=== PATIENT | female | born 1990 | race Hispanic/Latino ===

== ENCOUNTER 2022-11-09 17:13 | Emergency (ER) | payer MEDICAID, SELFPAY ==
--- NOTE | ~2022-11-09 | US_ITS ---
US OB <= 14 weeks fetus DATE: 11/09/2022 21:34 INDICATION: Nausea and vomiting. Rule out ectopic gestation. Beta hCG of 119,000 TECHNIQUE: Real-time imaging via transabdominal approach COMPARISON: None FINDINGS: The uterus measures approximately 8.8 cm height, 5.7 cm AP dimension. There is an intrauter ine gestational sac with pole and yolk sac identified. Uterine cervix measures approximately 3.2 cm. 2 cm left ovarian corpus luteum cyst. The left ovary measures approximately 3.3 x 2 x 3.1 cm. The rig ht ovary is not visualized. [place] lump length of 2.3 cm is consistent with 9 weeks +/- 6 days estimated gestational age, with JOAO of June 14, 2023 compared to June 19, 2023 by LMP. heart rate of 175 bpm. IMPRESSION: Live sauer intrauterine gestation, estimated gestational age of 9 weeks +/- 6 days; E Reviewed, dictated and finalized at [facility]. Reviewed, dictated and finalized at [facility]. IMPRESSION: Live sauer intrauterine gestation, estimated gestational age of 9 weeks +/- 6 days; JOAO: 06/14/2019
[2022-11-09 17:19] VITALS: BP 104/64; PULSE 94; RESP 17; TEMP 36.6; O2SAT 99
--- NOTE | 2022-11-09 19:46 | ED.GENADULT ---
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 Jim #[id number] Australian-speaking female @ approx 6 wks gestation presenting w/ nausea/vomiting. patient states that she has had persistent nausea vomiting for last 2 days. She has not been able to keep down water. She has had some intermittent sharp stabbing LLQ abdominal pain. She has not taken anything for her symptoms. She does not note any vaginal discharge bleeding or urinary symptoms. She does not have an OBGYN yet. Related Data Allergies Allergy/AdvReac Type Severity Reaction Status Date / Time No Known Allergies Allergy Unverified 11/13/10 17:11 Exam Narrative: APPEARANCE: No apparent distress. Head: atraumatic. EYES: EOMI, NOSE: Atraumatic NECK: Trachea midline RESPIRATORY: No increased rate of breathing , clear to auscultation. CARDIOVASCULAR: RRR, ABDOMINAL: Abdomen is soft nontender no guarding or rebound, no CVA tenderness MUSCULOSKELETAl: No obvious deformities NEURO: Alert. Moving 4/4 extremities SKIN:: Warm, dry. Normal color PSYCHIATRIC: Normal affect Course Vital Signs Vital signs: Vital Signs Temperature 97.9 F 11/09/22 17:19 Pulse Rate 94 11/09/22 17:19 Respiratory Rate 17 11/09/22 17:19 Blood Pressure 104/64 11/09/22 17:19 Pulse Oximetry 99 11/09/22 17:19 Oxygen Delivery Room Air 11/09/22 17:19 Temperature 97.9 F 11/09/22 17:19 Pulse Rate 94 11/09/22 17:19 Respiratory Rate 17 11/09/22 17:19 Blood Pressure 104/64 11/09/22 17:19 Pulse Oximetry 99 11/09/22 17:19 Oxygen Delivery Room Air 11/09/22 17:19 Medical Decision Making [facility] Narrative Medical decision making narrative: -Presentation: 32-year-old female presenting at 6 weeks gestation with nausea and vomiting she also had some left lower quadrant abdominal pain. Rule out ectopic and hyperemesis gravidarum workup has been ordered. 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 Metabolic panel within normal limits. HCG [id number] Urine had 11-20 white blood cells, 16 rbc's and +3 ketones. ultrasound showed a live intrauterine fetus. -Discussion of Management/Consultants: -Dx tests considered but not ordered: None -Procedures: -Interventions: 2 L D5 LR, 25 mg vitamin B6, 12.5 mg Phenergan -Shared decision making / Disposition: Patient's workup significant for hyperemesis gravidarum. She was fluid resuscitated and given antiemetics. Upon re-evaluation she was feeling better and was able tolerate p.o.. Transvaginal ultrasound confirmed intrauterine . Patient is given follow-up with Dr. Ventura and return precautions. -RX Vitamin B6, doxylamine, Keflex Vital Signs Vital Signs: Vital Signs Temperature 97.9 F 11/09/22 17:19 Pulse Rate 94 11/09/22 17:19 Respiratory Rate 17 11/09/22 17:19 Blood Pressure 104/64 11/09/22 17:19 Pulse Oximetry 99 11/09/22 17:19 Oxygen Delivery Room Air 11/09/22 17:19 Temperature 97.9 F 11/09/22 17:19 Pulse Rate 94 11/09/22 17:19 Respiratory Rate 17 11/09/22 17:19 Blood Pressure 104/64 11/09/22 17:19 Pulse Oximetry 99 11/09/22 17:19 Oxygen Delivery Room Air 11/09/22 17:19 Lab Data 11/09/22 19:50 11/09/22 19:50 Labs: Lab Results 11/09/22 11/09/22 11/09/22 Range/Units 19:46 19:50 20:40 WBC 9.4 (4.5-10.0) K/mm3 RBC 4.31 (4.2-5.4) M/mm3 Hgb 13.1 (12.0-15
[2022-11-09 19:50] LABS: Glucose Point of Care 94 mg/dl (65-105)
[2022-11-09] MEDS: PYRIDOXINE HCL 100 MG/ML VIAL (*SPC) 25 MG IV PUSH (19:57)
[2022-11-09] MEDS: PROMETHAZINE HCL 25 MG/ML AMPUL 12.5 MG IV PUSH (19:59)
[2022-11-09] MEDS: DEXTROSE 5%/LACTATED RINGERS 1,000 ML 999 ML IV CONT ×2 (19:59→21:12)
[2022-11-09 20:02] LABS: Basophils Absolute Auto 0.1 K/mm3 (0.0-0.1); Basophils Percent Auto 0.6 % (0.2-1.2); Eosinophils Percent Auto 0.3 % (0-4.4); Hematocrit 38.2 % (37.0-47.0); Hemoglobin 13.1 g/dL (12.0-15.0); Immature Granulocyte Absolute 0.04 K/mm3 (0.00-0.031); Immature Granulocyte Percent A 0.4 % (0-0.5); Lymphocytes Absolute Auto 1.84 K/mm3 (0.9-3.2); Lymphocytes Percent Auto 19.5 % (18.3-44.2); Mean Corpuscular HGB Conc 34.3 g/dl (32-36); Mean Corpuscular Hemoglobin 30.4 pg (26-34); Mean Corpuscular Volume 88.6 fl (80-100); Monocytes Absolute Auto 0.8 K/mm3 (0.1-0.6); Monocytes Percent Auto 8.2 % (2.6-8.5); Neutrophils Absolute Auto 6.7 K/mm3 (1.3-6.7); Platelet Count Result 399 k/mm3 (150-375); Red Blood Count 4.31 M/mm3 (4.2-5.4); Red Cell Distribution Width 12.4 % (11.5-14.5); White Blood Count 9.4 K/mm3 (4.5-10.0)
[2022-11-09 20:12] LABS: Alanine Aminotransferase 25 U/L (6-35); Albumin Level 4.3 g/dL (3.5-5.1); Alkaline Phosphatase 107 U/L (38-126); Anion Gap 8 mmol/L (8-16); Aspartate Amino Transferase 27 U/L (14-36); Bilirubin,Total 0.6 mg/dL (0.2-1.3); Blood Urea Nitrogen 5 mg/dL (7-17); Carbon Dioxide 21 mmol/L (22-30); Chloride 104 mmol/L (98-107); Estimated Glomerular Filt Rate > 60; Glucose 89 mg/dL (65-110); Lipase 96 U/L (23-300); Potassium 3.7 mmol/L (3.4-5.0); Sodium 133 mmol/L (137-145)
[2022-11-09 20:54] LABS: Appearance Urine Cloudy (Clear); Bacteria Urine Rare /hpf; Bilirubin Urine Negative (Negative); Blood Urine Trace (Negative); Color Urine Yellow (Yellow); Glucose Urine UA 3+ mg/dL (Negative); Ketones Urine 3+ mg/dL (Negative); Leukocyte Esterase Ur Negative LEU/UL (Negative); Need Manual Microscopic Reviewed; Nitrate Urine Negative (Negative); Non Pathogenic Casts 0-2; Protein Urine Negative (Negative); Specific Grav Ur 1.024 (1.001-1.035); Squamous Epithelial Cell Urine Moderate /hpf (Few); Urobilinogen Urine 0.2 mg/dL (<2.0)
[2022-11-09 20:59] LABS: Add Urine Microscopic? YES
[2022-11-09 22:52] VITALS: BP 111/68; PULSE 65; RESP 16; O2SAT 100
== END 2022-11-09 23:14 | disposition home or self-care (01) ==
PROVIDERS: Emergency Provider Emergency Medicine
DX: O21.0 Mild hyperemesis gravidarum (principal); O23.41 Unspecified infection of urinary tract in pregnancy, first trimester; N39.0 Urinary tract infection, site not specified; Z3A.01 Less than 8 weeks gestation of pregnancy
CPT/HCPCS: 36415; 76801; 80053; 81001; 81025; 82948; 83690; 83735; 84702; 85025; 86850; 86900; 86901; 87086; 87088; 96361; 96374; 96375; 99284; J2550; J3415; J7121

== ENCOUNTER 2023-07-19 14:47 | Emergency (ER) | payer OTHER, SELFPAY ==
--- NOTE | 2023-07-19 14:57 | ED.CHESTPAIN ---
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 Denies shortness of breath or nausea. Patient is 1 month . Denies following up with her OB, states that she tried calling and there was no appointments today. Pain is not reproducible Onset (ago): day(s) (2-3) Treatment prior to arrival: none Related Data Home Medications Medication Instructions Recorded Confirmed No Home Medications 07/19/23 07/19/23 Allergies Allergy/AdvReac Type Severity Reaction Status Date / Time No Known Allergies Allergy Verified 07/19/23 15:07 Review of Systems Review of Systems: All systems reviewed & are unremarkable except as noted in HPI and below Constitutional: Constitutional: Reports no additional constitutional complaints Eyes: Eyes: Reports no additional eye complaints ENT: Reports system reviewed and no additional complaints, except as documented Cardiovascular: Cardiovascular: Reports as per HPI, Reports chest pain (Left-sided) and Denies dyspnea Respiratory: Respiratory: Reports no additional respiratory complaints, Denies chest congestion, Denies cough and Denies dyspnea Gastrointestinal: Gastrointestinal: Reports no additional gastrointestinal complaints, Denies abdominal pain, Denies nausea and Denies vomiting Musculoskeletal: Musculoskeletal: Reports no additional musculoskeletal complaints Integumentary/Breasts: Skin/Breast: Reports system reviewed and no additional complaints, except as docu Neurologic: Reports system reviewed and no additional complaints, except as documented Psychiatric: Psychiatric: Reports no additional psychiatric complaints Allergic/Immunologic: Allergic/Immunologic: Reports no additional allergic/immunologic complaints PMF Past Medical History Medical History (Updated 07/19/23 @ 15:39 by Dalia Lopez APRN) Patient denies medical problems Surgical History Surgical History (Updated 07/19/23 @ 15:34 by Dalia Lopez APRN) No pertinent past surgical history Comments At the time of my signature, I reviewed and agree with the nursing past medical, surgical, social, and family history. There is no relevant family history pertinent to the patient complaint. Exam Const: General: cooperative, healthy appearing, comfortable, no acute distress, well developed, alert and well nourished Nutritional Appearance: well nourished Orientation/consciousness: patient oriented x3 Limitations: no limitations HENMT: Head: normal to inspection Ears: hearing grossly normal bilaterally and external ears normal Face/Nose/Sinus: Normal external nose present, Normal nares present, Normal nasal mucous membranes and turbinates present, normal facial exam and face symmetric Face and sinus: normal facial exam and face symmetric Mouth: Yes moist mucous membranes Eyes: General: appearance normal, both eyes and all related structures Alignment and Position: alignment normal Periorbital: periorbital findings normal Pupils: Equal, round and reactive pupils present EOM: EOMs intact bilaterally Neck: Neck: normal visual inspection, full ROM, no lymphadenopathy and no meningeal signs Chest: Chest palpation & inspection: normal inspection of the chest Resp: Effort & Inspection: normal respiratory effort and able to speak in complete sentences Auscultation: clear to auscultation bilaterally, no crackles, no rales, no rhonchi and no wheezes Cardio: Jugular venous distension: no JVD Palpation: normal PMI Rate: regular rate Rhythm: regular rhythm Other: No edema Back/Spine/Pelvis: Cervic
[2023-07-19 15:03] VITALS: BP 111/68; PULSE 99; RESP 16; TEMP 36.6; O2SAT 99
--- NOTE | 2023-07-19 15:19 | ECG_ITS ---
Measurements Intervals [place] Rate: 94 P: 54 WY: 157 QRS: 63 QRSD: 93 T: 38 QT: 357 QTc: 447 Interpretive Statements SINUS RHYTHM NORMAL ECG NO PREVIOUS ECG AVAILABLE FOR COMPARISON Electronically Signed On 07-19-2023 15:32:24 CDT by Hank Ramos D.O.
== END 2023-07-19 15:33 | disposition short-term general hospital (02) ==
PROVIDERS: Emergency Provider Nurse Practitioner
DX: O90.89 Other complications of the puerperium, not elsewhere classified (principal); R07.9 Chest pain, unspecified; M54.6 Pain in thoracic spine
CPT/HCPCS: 93005; 99213; G0463

== ENCOUNTER 2024-02-14 17:37 | Emergency (ER) | payer OTHER, SELFPAY ==
--- NOTE | 2024-02-14 17:39 | ED.URI ---
HPI - URI/Sore Throat General Chief Complaint: Ear Stated Complaint: Left Eye/Ear Irritation Time Seen by Provider: 02/14/24 17:39 Source: patient and spanish medical interpreter Mode of arrival: ambulatory Limitations: no limitations History of Present Illness HPI Narrative: Mony is a 33-year-old female patient presenting to the clinic today with complaints of left eye and left ear irritation for the past 3 days. No fever or chills. Reports that the left eyelid became swollen and was tender to palpation. States that the redness and swelling has gone down over the past day or 2. Also reporting some left ear discomfort. MD elicited complaint: sore throat and nasal congestion Related Data Allergies Allergy/AdvReac Type Severity Reaction Status Date / Time No Known Allergies Allergy Verified 02/14/24 17:55 Review of Systems Review of Systems: Pertinent positives per HPI. Patient denies any fever, chills, rash, headache, visual changes, dizziness, cough, shortness of breath, chest pain, palpitations, nausea, vomiting, diarrhea, constipation, abdominal pain, or any urinary issues. PMFSH Past Medical History Medical History Patient denies medical problems Surgical History Surgical History No pertinent past surgical history Comments At the time of my signature, I reviewed and agree with the nursing past medical, surgical, social, and family history. There is no relevant family history pertinent to the patient complaint. Exam Narrative: General: Well-developed, well nourished, in no apparent distress Head: Normocephalic, atraumatic Eyes: Pupils equally round and reactive to light bilaterally, EOM intact, red swollen tender firm area to the left upper eyelid, no fluctuance palpable, no obvious pustule noted, sclera and conjunctive clear, no discharge, lids normal Ears: TMs intact and clear, ear canals clear, no drainage, grossly hearing normal. Nose: Nares patent, no discharge, no inflammation, no sinus tenderness. Mouth: Oral pharynx without lesions or masses, good dentition, MMM. Neck: Supple, trachea midline, no enlargement of anterior or posterior cervical nodes, no thyroid masses or goiter palpable. Cardio: Regular rate and rhythm, s1 and s2 normal, no murmur appreciated. Resp: Clear to auscultation bilaterally, no rhonchi, rales, wheezing or rubs Course Course Emergency Course: Portions of this record may have been created with voice recognition software. Level of Care: Express Care Visit Vital Signs Vital signs: Vital Signs Temperature 36.7 C 02/14/24 17:45 Pulse Rate 86 02/14/24 17:45 Respiratory Rate 20 02/14/24 17:45 Blood Pressure 106/67 02/14/24 17:45 Pulse Oximetry 100 02/14/24 17:45 Oxygen Delivery Room Air 02/14/24 17:45 Temperature 36.7 C 02/14/24 17:45 Pulse Rate 86 02/14/24 17:45 Respiratory Rate 20 02/14/24 17:45 Blood Pressure 106/67 02/14/24 17:45 Pulse Oximetry 100 02/14/24 17:45 Oxygen Delivery Room Air 02/14/24 17:45 Vital signs reviewed MDM - URI/Sore Throat MDM Narrative Medical decision making narrative: At the time of visit patient is resting comfortably on the exam table. Patient appears to be nontoxic. Plan: I suspect patient has otalgia and left upper eyelid swelling likely due to infected cyst or stye. Supportive measures were discussed with the patient and they voiced understanding discharge instructions and agrees to treatment plan. Return precautions reviewed Differential Diagnosis Differential diagnosis: Likely upper respiratory infection, otitis media, sinusitis, viral infection, bronchitis, influenza, pharyngitis and other (COVID) Discharge Plan Discharge Clinical Impression: External hordeolum, Acute otalgia Patient Disposition: Home, Self-Care Condition: Stable Instructions: Antibiotic
[2024-02-14 17:45] VITALS: BP 106/67; PULSE 86; RESP 20; TEMP 36.7; O2SAT 100
== END 2024-02-14 18:14 | disposition home or self-care (01) ==
PROVIDERS: Emergency Provider Nurse Practitioner Family
DX: H00.014 Hordeolum externum left upper eyelid (principal); H92.02 Otalgia, left ear
CPT/HCPCS: 99213; G0463

== ENCOUNTER 2024-10-21 09:06 | Emergency (ER) | payer SELFPAY ==
[2024-10-21 09:16] VITALS: BP 104/75; PULSE 90; RESP 16; TEMP 37.2; O2SAT 98
--- NOTE | 2024-10-21 09:20 | ED.FEMALEGU ---
HPI - Female Genitourinary General Stated complaint: bleeding for 25 days Source: patient and RN notes reviewed Mode of arrival: ambulatory Limitations: no limitations History of Present Illness MD elicited complaint: UTI Related Data Allergies Allergy/AdvReac Type Severity Reaction Status Date / Time No Known Allergies Allergy Verified 02/14/24 17:55 Review of Systems Review of Systems: CONSTITUTIONAL: Denies malaise, chills, sweats, or fever. CARDIOVASCULAR: Denies chest pain, palpitations, or edema. RESPIRATORY: Denies cough or dyspnea. GASTROINTESTINAL: Denies abdominal pain, nausea, vomiting, diarrhea GENITOURINARY: Reports dysuria, frequency, urgency, suprapubic pressure. Denies flank pain or hematuria. SKIN: Denies rash or itching. MUSCULOSKELETAL: Denies back pain or myalgia. All systems reviewed & are unremarkable except as noted in HPI and below PMFSH Past Medical History Medical History Patient denies medical problems Surgical History Surgical History No pertinent past surgical history Comments At time of signature, agree with nursing past medical, surgical, social and family history. There is no relevant family history pertinent to the presenting complaint Exam Narrative: GENERAL: Well-appearing, well-nourished, and in no acute distress. HEAD: Normocephalic. EYES: PERRLA, conjunctivae clear. NECK: Supple. No lymphadenopathy CHEST: Clear to auscultation. No respiratory distress. HEART: Regular rate and rhythm. ABDOMEN: Soft, nontender upon palpation, nondistended, normal active bowel sounds, no palpable or pulsatile masses, no guarding. No CVA tenderness SKIN: Warm, dry, no rash. NEURO: Alert and oriented x3. PSYCH: Normal mood and affect Course Course Emergency Course: Patient is aware of diagnosis, understands and agrees to treatment plan. Anticipatory guidance given. Patient agrees to follow-up as directed and is aware of reasons to seek care at the emergency department. Portions of this record may have been created with voice recognition software Level of Care: Express Care Visit Vital Signs Vital signs: Vital Signs Temperature 98.9 F 10/21/24 09:16 Pulse Rate 90 10/21/24 09:16 Respiratory Rate 16 10/21/24 09:16 Blood Pressure 104/75 10/21/24 09:16 Pulse Oximetry 98 10/21/24 09:16 Oxygen Delivery Room Air 10/21/24 09:16 Temperature 98.9 F 10/21/24 09:16 Pulse Rate 90 10/21/24 09:16 Respiratory Rate 16 10/21/24 09:16 Blood Pressure 104/75 10/21/24 09:16 Pulse Oximetry 98 10/21/24 09:16 Oxygen Delivery Room Air 10/21/24 09:16 Reviewed. MDM - Female Genitourinary MDM Narrative Medical decision making narrative: Exam findings and UA show no acute concerns or changes; patient is non-toxic appearing and is in no distress. Patient is appropriate for outpatient treatment and follow-up. Differential Diagnosis Differential diagnosis: Likely urinary tract infection and cystitis Critical Care Time Critical Care Time Critical Care Time: No Discharge Plan Discharge Patient Language: Danish Prescriptions: No Action polymyxin B sulf-trimethoprim 10,000 unit- 1 mg/mL drops 1 drp LEFT EYE Q3H 7 Days Qty: 10 0RF Rx Instructions: while awake; do not exceed 6 doses in 24 hours Follow-up/Referrals: UNKNOWN,DOCTOR [Primary Care Provider] -
== END 2024-10-21 10:15 | disposition left against medical advice (07) ==
DX: Z53.21 Procedure and treatment not carried out due to patient leaving prior to being seen by health care provider (principal)
CPT/HCPCS: 99199